=== PATIENT | male | born 1985 | race Caucasian/White ===

== ENCOUNTER 2024-12-13 18:55 | Observation (INO) | payer MEDICAID, SELFPAY ==
[2024-12-13 18:57] VITALS: BP 168/93; PULSE 104; RESP 18; TEMP 37.2; O2SAT 99; BMI 30.5
--- NOTE | 2024-12-13 19:20 | EDS_ITS ---
HPI History of Present Illness Chief Complaint: Substance Abuse Informant: patient Onset/Context/Timing Onset: - (Years) Context: Gradual Onset Timing: Continuous Current Severity: Mild Maximum Severity: Mild Narrative Narrative: 39-year-old male history of substance abuse currently abusing IV fentanyl. Requesting detox. Last detox was 2 years ago at another facility. Denies other complaints. Prior similar symptoms: Yes Recent Illness/Hospitalization: No PFSH PFSH Medical History Anxiety and depression Polysubstance abuse Obesity Tobacco use Home Medications ?Medication ?Instructions ?Recorded ?Last Taken ?Type NK 12/13/24 Unknown History Allergy/AdvReac Type Severity Reaction Status Date / Time No Known Allergies Allergy Verified 12/13/24 18:56 Family History (Updated 12/13/24 @ 20:[address] Jaz Frankel MD) Mother Anxiety and depression Suicide Polysubstance abuse Father CAD (coronary artery disease) Hypertension Heart disease Myocardial infarction Surgical History History of incision and drainage H/O bilateral inguinal hernia repair Social History (Updated 12/13/24 @ 20:[address] Jaz Frankel MD) household members: spouse housing: homeless Smoking Status: Current every day smoker tobacco type: cigarettes Smoking packs per day: 1 Smoking cigarettes per day: 20.0 alcohol intake: never substance use type: heroin and IV drugs ROS ROS ED ROS Narrative Denies recent illness. Constitutional Constitutional ED: Denies chills or fever(s) Eyes Eyes: Denies blurry vision ENT ENT ED: Denies ear pain Cardiovascular Cardiovascular: Denies chest pain Respiratory/Chest Respiratory/Chest: Denies cough or dyspnea Gastrointestinal Gastrointestinal: Denies abdominal pain Genitourinary Genitourinary ED: Denies dysuria Musculoskeletal Musculoskeletal: Denies arthralgias Integumentary Denies abscess Neurologic Neurologic: Denies headache(s) Psychiatric Psychiatric: Denies anxiety Endocrine Endocrinology: Denies cold intolerance Hematologic/Lymphatic Hematologic/Lymphatic: Denies easy bleeding, easy bruising or lymphadenopathy Allergic/Immunologic Allergic/Immunologic ED: Denies mouth swelling, tongue swelling or urticaria EXAM Physical Exam Narrative Exam Narrative: 39-year-old male no acute distress. Vital signs are stable afebrile. H EENT exam pupils round react light. Mytrex membranes. Neck nontender. No lymphadenopathy. Lungs clear to auscultation bilaterally. Heart tachycardic rate of 105 no murmur. Chest wall and ribs nontender. Abdomen soft nontender. No peritoneal signs. Moving all 4 extremities. Calves are nontender without edema. Normal range of motion. No hot or tender joints. Multiple areas where he is injected in his fingers track bishop in both arms. No acute cellulitis or abscesses. Multiple tattoos. Back nontender. Neurologically he is awake al ert. Answering questions following commands. Const Vital Signs: 12/13/24 18:57 Temperature 99.0 F Temperature Source Temporal Pulse Rate 104 H Respiratory Rate 18 Blood Pressure 168/93 H Blood Pressure Mean 118 Pulse Ox 99 Oxygen Delivery Method Room Air Positive well nourished and well developed; Negative for cachectic, contractures or unkempt General Appearance ED: well developed; Negative for unkempt, cachectic, contractures or pallor Nutritional Appearance: Negative for cachectic HEENT Reports moist mucous membranes atraumatic Eyes PERRL and EOMs intact bilaterally Neck no lymphadenopathy, supple and no JVD Lymph Lymphatic: no lymphadenopathy noted Chest Wall inspection of chest normal and palpation of chest normal Resp normal respiratory effort and clear to auscultation bilaterally Cardio regular rate, regular rhythm, S1 normal heart sound, S2 normal heart sound and no murmurs Rate: Negative for bradycardia or tachycardic Rhythm: Negative for abnormal rhythm Bruits: Negative for other GI soft to palpation, non-tender, non-distended and no masses Palpation: Negative for tender, guarding or rigid Back/Spine no CVA tenderness General Back: Negative for CVA tenderness Cervical Spine: Negative for cervical spine tenderness Thoracic Spine / Upper Back: Negative for thoracic spinal tenderness Extremity Extremity Narrative: Multiple areas of track bishop. No abscesses or cellulitis seen. General Extremety ED: Negative for edema or tenderness General Extremity: Negative for edema Neuro oriented x3 and CN's II-XII intact bilaterally Sensorium / Orientation: alert, oriented to person, oriented to place and oriented to time; Negative for confused or lethargic Speech: speech normal Motor Exam: strength 5/5 throughout Psych mental status grossly normal and thought process normal Appearance: Negative for unkempt Skin Skin Narrative: Multiple track bishop. Multiple tattoos. General Skin Exam: Negative for jaundice or pallor Lesions: no lesions Rashes: no rashes Trauma: Negative for abrasion MDM MDM MDM Narrative Medical decision making narrative: 39-year-old male history of drug abuse currently abusing IV fentanyl requesting detox. Exam benign. Hospitalist on page for admission. History & Record Review Discussion w/independent historian: Patient Additional record(s) reviewed:: No prior records Lab Data Attestation: I reviewed the patient's lab results. Lab results narrative: CBC shows white count of 6. H&H 13 and 40. Alcohol negative. Tox screen positive for fentanyl and other. Electrolytes show normal sodium. Normal gap of 11. Normal BUN and creatinine. Glucose 101. Discharge Plan Dx/Rx/DC Orders Clinical Impression: Active substance abuse, Mild fentanyl abuse, Desire for detoxification Disposition Disposition: Acute Care Hospital [facility] Discharge Date/Time: 12/13/24 20:33
--- NOTE | 2024-12-13 19:28 | PCM.HP.STD ---
HPI - General General Date of Admission: 12/13/24 Date of Service: 12/13/24 Chief Complaint: Acute Opiate Withdrawal HPI Narrative The patient is a 39 y/o M w/ PMHx: Possible Hepatitis C, Polysubstance abuse (currently IV fentanyl, usually 2-3 gm) who presents to the [facility] ED on 12/13/2024 w/ noted acute opiate withdrawal onset starting early today following last dose the evening prior with abdominal cramping, generalized body aches, rhinorrhea, fatigue, restlessness and diaphoresis. He also notes currently him and his are homeless. He notes she has a 9 year old daughter in the Father's custody but they would like to get clean to be able to have her in their lives. Patient interested in attaining clean status. Workup in the ED included T99, heart 104, BP 168/93, respiratory rate 18, 99% on room air. In the ED pending alcohol, UDS, CBC and CMP upon requested evaluation of patient. [facility] Medical History Anxiety and depression Polysubstance abuse Obesity Tobacco use Home Medications ?Medication ?Instructions ?Recorded ?Last Taken ?Type NK 12/13/24 Unknown History Allergy/AdvReac Type Severity Reaction Status Date / Time No Known Allergies Allergy Verified 12/13/24 18:56 Family History (Updated 12/13/24 @ 20:[address] Jaz Farnkel MD) Mother Anxiety and depression Suicide Polysubstance abuse Father CAD (coronary artery disease) Hypertension Heart disease Myocardial infarction Surgical History History of incision and drainage H/O bilateral inguinal hernia repair Social History (Updated 12/13/24 @ 20:[address] Jaz Frankel MD) household members: spouse housing: homeless Smoking Status: Current every day smoker tobacco type: cigarettes Smoking packs per day: 1 Smoking cigarettes per day: 20.0 alcohol intake: never substance use type: heroin and IV drugs ROS ROS Narrative Admission Review of Systems: CONSTITUTIONAL: No weight loss, fever, chills, + weakness or fatigue. HEENT: + Headache, rhinorrhea. Eyes: No visual loss, blurred vision, double vision or yellow sclerae. Ears, Nose, Throat: No hearing loss, sneezing, congestion, sore throat. SKIN: No rash or itching, lesions, wounds. CARDIOVASCULAR: No chest pain, chest pressure or chest discomfort, palpitations, edema, orthopnea, syncopal events. RESPIRATORY: No shortness of breath, cough or sputum, wheezing, hemoptysis. GASTROINTESTINAL: + Anorexia, mild nausea, abdominal cramping, No vomiting, diarrhea, melena, BRBPR. GENITOURINARY: No dysuria, frequency, urgency or retention. NEUROLOGICAL: + Headache, restlessness. No dizziness, syncope, paralysis, ataxia, numbness or tingling in the extremities, focal weakness, change in bowel or bladder control, seizure. MUSCULOSKELETAL: + muscle, back pain, joint pain or stiffness. HEMATOLOGIC: No anemia, bleeding or bruising. LYMPHATICS: No enlarged nodes. No history of splenectomy. PSYCHIATRIC: + History of anxiety and depression. ENDOCRINOLOGIC: + Diaphoresis. No cold or heat intolerance. No polyuria or polydipsia. ALLERGIES: No history of asthma, hives, eczema or rhinitis. Vital Signs Vital Signs Vital Signs: 12/13/24 18:57 Temperature 99.0 F Temperature Source Temporal Pulse Rate 104 H Respiratory Rate 18 Blood Pressure 168/93 H Blood Pressure Mean 118 Pulse Ox 99 Oxygen Delivery Method Room Air Weight Weight: 207 lb 0.225 oz Body Mass Index (BMI) 30.5 Physical Exam Narrative Physical Examination: General: Awake, alert, oriented x 3 and cooperative, seated upright in the ED bed, restless, intermittent crying. Skin: Normal color, normal turgor, no icterus, no cyanosis except significant various track bishop evidence as well as evidence of recent abscesses some status post I&D with 1 right index finger with sutures still in place but loose, very staged ecchymoses HEENT: AT/NC, EOMI, PERRLA, dry MM, no carotid bruits or JVD noted, notable bilateral scleral injection. Lungs: CTA bilaterally, moderate effort, mild decrease BL bases, no rales, ronchi or wheezing. Heart: Mildly tachycardic with regular rhythm; no gallop, rub audible. Abdomen: Soft, mild generalized discomfort but no rebound or guarding, nondistended, hyperactive BS, no appreciated HSM. Extremities: No cyanosis, clubbing, edema, see skin. Neurological: Patient awake, alert, oriented as noted, cognitive function intact; pupils equally reactive to light and accommodation, cranial nerves gross normal, moving all 4 extremities, no focal deficits, strength moderately globally decreased secondary to acute withdrawal complaints, very restless. Psychiatric: Affect appears restless, crying, labile mood with evidence of anxiety and depression with known history. Results Lab / Micro Data 12/13/24 19:33 12/13/24 19:33 Assessment & Plan Assessment/Plan (1) Opiate withdrawal: PLAN: Plan The patient is a 39 y/o M w/ PMHx: Possible Hepatitis C, Polysubstance abuse (currently IV fentanyl, usually 2-3 gm) who presents to the [facility] ED on 12/13/2024 w/ noted acute opiate withdrawal onset. #1. Acute Opiate Withdrawal: Will admit to [facility], routine labs including CBC, CMP, urine for drug screen pending upon request evaluation of patient, will initiate and continue on protocol with tapering course of Subutex, as needed tylenol, ibuprofen, bowel regimen, gabapentin, Bentyl, Vistaril, methocarbamol, clonidine, PRN nightly trazodone for insomnia, IV fluids, IV antiemetics. Once patient clinically improved and completion of taper nearing will plan consultation with case management for transition to next level of rehabilitation care. #2. Elevated BP without having with diagnosis: Possibly secondary to acute withdrawal, will continue to monitor and if necessary may add oral regimen, as needed IV hydralazine in the interim. #3. Polysubstance Abuse, IVDA with possible hepatitis C: Will obtain HIV, hepatitis as well as syphilis, encourage continued outpatient follow-up with primary care physician, continue evaluation treatment as noted above #1. #4. Tobacco Abuse: Encouraged cessation, inpatient consultation per RT, NR if desired. #5. Obesity: Weight loss and lifestyle changes encouraged. #6. Homelessness: Patient without intermediate discharged with a high risk for nonadherence to current attempt for clean status with risk for readmission, case management/social work consulted as well as 180. #7. DVT prophylaxis: Low risk for type of presentation, encourage ambulation. Charges/Coding Visit Charges Inpatient E&M: 86180 Init Hosp L3
[2024-12-13 20:01] VITALS: BP 156/96; PULSE 99; RESP 18; TEMP 36.7; O2SAT 98
[2024-12-13 20:25] LABS: Absolute Lymphocyte Count 0.45 X10^3/uL (0.83-4.51); Absolute Neutrophil Count 5.7 X10^3/uL (2.0-7.7); Basophil# 0.02 X10^3/uL; Basophil% 0.3 % (0-1); Eosinophil# 0.03 X10^3/uL; Eosinophils% 0.5 % (0-5); Hematocrit 40.5 % (40-54); Hemoglobin 13.5 g/dL (13.0-16.5); Lymphocyte # 0.45 X10^3/ul (0.83-4.51); Lymphocyte % 7.2 % (19-41); Mean Corp Hgb Conc 33.3 g/dL (32-36); Mean Corpuscular Hgb 30.3 pg (27.0-32.0); Mean Corpuscular Volume 90.8 fL (80-94); Mean Platelet Vol. 9.5 fl (6.2-12.0); Monocyte# 0.11 X10^3/uL; Monocyte% 1.8 % (0-10); NRBC Flagged by Analyzer 0 % (0-5); Neutrophil # 5.65 X10^3/uL (2.7-7.7); Neutrophil % 89.9 % (47-70); POSITIVE DIFFERENTIAL YES; Platelet Count 273 K/mm3 (150-450); RBC Distribution Width CV 12.6 % (11.6-14.6); RBC Distribution Width SD 41.5 fl (35.1-43.9); Red Blood Count 4.46 M/mm3 (4.6-6.2); White Blood Count 6.3 K/mm3 (4.4-11.0)
[2024-12-13 20:31] LABS: Alcohol, Blood (Medical)-Serum < 10.1 mg/dL (<=10.0)
[2024-12-13 20:49] LABS: ALB/GLOB Ratio 1.2 RATIO (0.9-2.4); AST(SGOT) 57 U/L (<=37); Alanine Aminotransfer ALT/SGPT 54 U/L (<=46); Albumin, Serum 3.9 g/dL (3.5-5.0); Alkaline Phosphatase 84 U/L (40-129); Anion Gap 12 (5-15); BUN 11 mg/dL (4-19); BUN/Creat Ratio 13.5 RATIO (10-20); Carbon Dioxide 22.2 mmol/L (21.0-32.0); Chloride 102 mmol/L (98-108); EST Glomerular Filtration Rate 117 (>60); Estimated Creatinine Clearance 143.02 ml/min (50-250); Globulin 3.3 g/dL (2.2-4.2); Glucose 101 mg/dL (70-99); HIV Nonreactive (Nonreactive); Potassium 3.9 mmol/L (3.3-5.1); Protein, Total 7.2 g/dL (5.9-8.4); Sodium Level 136 mmol/L (133-145); Syphilis Antibodies Nonreactive (Nonreactive); Total Bilirubin 0.64 mg/dL (0.00-1.30)
[2024-12-13 20:56] LABS: Amphetamine Urine NEGATIVE (<1000 ng/mL); Barbiturate Urine NEGATIVE (< 200 ng/mL); Benzodiazepine Urine PRESUMPTIVE POSITIVE (< 200 ng/mL); Buprenorphine Urine NEGATIVE (< 200 ng/mL); Cocaine Urine PRESUMPTIVE POSITIVE (< 300 ng/mL); Fentanyl, Urine PRESUMPTIVE POSITIVE; Methadone Urine NEGATIVE (< 300 ng/mL); Opiates Urine NEGATIVE (< 300 ng/mL); Oxycodone, Urine NEGATIVE (< 100 ng/mL); PCP Urine NEGATIVE (< 25 ng/mL); THC Urine PRESUMPTIVE POSITIVE (< 50 ng/mL)
[2024-12-13 22:02] VITALS: BP 114/63; PULSE 86; RESP 20; TEMP 37; O2SAT 92
[2024-12-13 22:13] VITALS: BMI 30.2
[2024-12-13 22:56] LABS: Hepatitis B Surface Antigen Nonreactive (Nonreactive); Hepatitis C Antibody REAC (Nonreactive)
[2024-12-14 00:05] LABS: Hepatitis B Surface Antibody Nonreactive
[2024-12-14 02:30] VITALS: BP 139/92; PULSE 70; RESP 18; TEMP 36.6; O2SAT 99
--- NOTE | 2024-12-14 11:00 | PN.HOSP_ITS ---
Subjective Subjective Doing well, no issues overnight resting comfortably. Cina score of 4 Objective Data Objective Data Vital Signs: Vital Signs Temp Pulse Resp BP Pulse Ox O2 Del Method 97.9 F 70 18 139/92 H 99 Room Air 12/14/24 02:30 12/14/24 02:30 12/14/24 02:30 12/14/24 02:30 12/14/24 02:30 12/14/24 02:30 Oxygen Delivery Method Room Air Weight: 203 lb 11.314 oz Body Mass Index (BMI) 30.2 Lab / Micro Data 12/13/24 19:33 12/13/24 19:33 Labs: Laboratory Results - last 24 hr 12/13/24 19:33: WBC 6.3, RBC 4.46 L, Hgb 13.5, Hct 40.5, MCV 90.8, MCH 30.3, MCHC 33.3, RDW Std Deviation 41.5, RDW Coeff of Yenni 12.6, Plt Count 273, MPV 9.5, Immature Gran % (Auto) 0.300, Neut % (Auto) 89.9 H, Lymph % (Auto) 7.2 L, Schleicher % (Auto) 1.8, Eos % (Auto) 0.5, Baso % (Auto) 0.3, Absolute Neuts (auto) 5.7, Absolute Lymphs (auto) 0.45 L, Nucleated RBC % 0, Sodium 136, Potassium 3.9, Chloride 102, Carbon Dioxide 22.2, Anion Gap 12, BUN 11, Creatinine 0.80, Estim Creat Clear Calc 143.02, Est GFR (MDRD) Non-Af 117, BUN/Creatinine Ratio 13.5, Glucose 101 H, Calcium 9.0, Total Bilirubin 0.64, AST 57 H, ALT 54 H, Alkaline Phosphatase 84, Total Protein 7.2, Albumin 3.9, Globulin 3.3, Albumin/Globulin Ratio 1.2, Urine Opiates Screen NEGATIVE, U Buprenorphine Qual NEGATIVE, Ur Oxycodone Screen NEGATIVE, Urine Methadone Screen NEGATIVE, Urine Fentanyl Screen PRESUMPTIVE POSITIVE, Ur Barbiturates Screen NEGATIVE, Ur Phencyclidine Scrn NEGATIVE, Ur Amphetamines Screen NEGATIVE, U Benzodiazepines Scrn PRESUMPTIVE POSITIVE, Urine Cocaine Screen PRESUMPTIVE POSITIVE, U Cannabinoids Screen PRESUMPTIVE POSITIVE, Ethyl Alcohol < 10.1, Syphilis Total Ab Nonreactive, Hep Bs Antigen Nonreactive, Hep Bs Antibody Nonreactive, Hepatitis C Antibody REAC, HIV 1&2 Antibody Nonreactive Physical Exam Narrative General: Alert, Oriented x3, Cooperative, No apparent distress, resting comfortably HEENT: Atraumatic, PERRLA, EOMI, Normocephalic Oral: Moist Mucosa Neck: Supple, No JVD Lungs: Clear to auscultation, Normal air movement, No rhonchi, No wheeze, No rales Cardiovascular: Regular rate, Regular Rhythm, Normal S1, Normal S2, No murmurs Abdomen: Soft, Non Tender, Non-Distended, No Hepato-splenomegaly Extremities: No edema, Capillary Refill Less than 3 Seconds Skin: No rashes, No breakdown Musculoskeletal: No Tenderness to Palpation of Joints or Extremities Neurological: No focal neurological deficits, Motor Exam 5/5 strength throughout, Sensory exam intact to light touch and pain Psych/Mental Status: Flat Assessment & Plan Assessment/Plan (1) Opiate withdrawal: PLAN: Plan 1. Acute opiate withdrawal/polysubstance abuse/tobacco abuse ? Continue with the opiate withdrawal protocol, he has not triggered the need for medications at the moment ? Will have him follow-up with 180 to develop a discharge plan ? HIV was negative and hepatitis was only reactive for hepatitis C antibody which was expected as he does have a history of it will have him follow-up as an outpatient with gastroenterology ? Discussed tobacco cessation, nicotine replacement if necessary 2. Homelessness: Patient without jail discharged with a high risk for nonadherence to current attempt for clean status with risk for readmission, case management/social work consulted as well as 180. DVT: Ambulation Charges/Coding Visit Charges Inpatient E&M: 66739 Subs Hosp L2
[2024-12-14 11:57] VITALS: O2SAT 97
--- NOTE | 2024-12-14 12:45 | NURSING ---
pt found braking in to belonging tote. nursing went back to room and found pt vaping. asked pt if he was going to leave. pt stated he wanted to see . pt asking to sign ama papers. pt did . explained that pt had to follow rules of program to remain in ramp program. pt asked if he could stay. nursing stated he would have to go through er again. pt also wanted to see . told him that she is also part of the ramp program and is unable to see visitors at this time. dr brooks notified pt leaving. and dye house helper notified of pt leaving.
--- NOTE | 2024-12-14 12:54 | ADDICTION ---
Clinician was unable to see pt. He left AMA.
== END 2024-12-14 12:33 | disposition left against medical advice (07) | DRG 770 ==
LOC: ED 19:51 → MS3 12-14 07:13
PROVIDERS: Admitting Provider Family Medicine; Emergency Provider Emergency Medicine; Visit Provider Family Medicine
DX: F11.13 Opioid abuse with withdrawal (principal); Z59.02 Unsheltered homelessness; E66.9 Obesity, unspecified; F17.210 Nicotine dependence, cigarettes, uncomplicated; R03.0 Elevated blood-pressure reading, without diagnosis of hypertension; Z68.30 Body mass index [BMI] 30.0-30.9, adult; Z53.29 Procedure and treatment not carried out because of patient's decision for other reasons
CPT/HCPCS: 80053; 80307; 82077; 85025; 86703; 86706; 86780; 86803; 87340; 97802; 99283; H0012